=== PATIENT | female | born 1970 | race Caucasian/White ===

== ENCOUNTER → 2021-03-10 | Outpatient (CLI) | payer BC ==
[~2021-03-10] MED LIST: CLARITIN10 MG PO; PROTONIX40 MG PO; ZANTAC150 MG PO
== END ==
LOC: LAB 08:38
DX: Z32.00 Encounter for pregnancy test, result unknown (principal)
CPT/HCPCS: 36415; 84702

== ENCOUNTER → 2022-01-05 | Outpatient (CLI) | payer BC ==
[2022-01-05 11:40] LABS: HEMOGLOBIN 14.1 gm/dl (12.3-15.3); RED BLOOD COUNT 4.81 M/UL (4.00-5.10); WHITE BLOOD COUNT 9.9 K/UL (4.5-11.0)
[2022-01-05 11:54] LABS: BUN/CREATININE RATIO 16 (0-10)
== END ==
LOC: LAB 10:21
PROVIDERS: Nurse Practitioner Psychiatric/Mental Health
DX: R06.00 Dyspnea, unspecified (principal); R05.9 Cough, unspecified
CPT/HCPCS: 36415; 71046; 80053; 80061; 82607; 82652; 82746; 83036; 83540; 83550; 84425; 84439; 84443; 85025